=== PATIENT | female | born 1995 | race Two or more races ===

== ENCOUNTER 2017-02-16 18:40 | Emergency (ER) | payer MEDICAID ==
[~2017-02-16] VITALS: Ht 167.6 cm; Wt 114.6 kg
[2017-02-16 18:44] VITALS: BP 139/89
== END 2017-02-16 20:29 | disposition home or self-care (01) ==
LOC: ED 20:23
DX: S13.4XXA Sprain of ligaments of cervical spine, initial encounter (principal); S90.31XA Contusion of right foot, initial encounter; Y04.0XXA Assault by unarmed brawl or fight, initial encounter; Y93.89 Activity, other specified; Y99.8 Other external cause status; Y92.410 Unspecified street and highway as the place of occurrence of the external cause
CPT/HCPCS: 72050